=== PATIENT | male | born 1975 | race Two or more races ===

== ENCOUNTER 2024-05-27 19:08 | Emergency (ER) | payer MEDICAID, SELFPAY ==
[2024-05-27 19:10] VITALS: BMI 32.0
[2024-05-27 19:37] VITALS: BP 136/82; PULSE 78; RESP 18; TEMP 36.6; O2SAT 98
--- NOTE | 2024-05-27 19:54 | XR_ITS ---
Examination: CT brain head without contrast. 2-D sagittal coronal reconstructions Date and time of exam:May 27, 20242006 hrs. Comparison November 07, 2022 Indications: Onset dizziness beginning 4 days ago CTDI: vol (mGy):F50.1 DLP: (mGycm):990 Technique: Multiple CT axial sections of the brain have been obtained, 5 mm slice thickness. Contrast has not been administered. 2-D sagittal, coronal reconstructions have been obtained Low dose protocols were performed. One or more of the following dose reduction techniques were used; automated exposure control, adjustment of the mA and/or KV according to patient size, use of iterative reconstruction technique. Findings: No significant ventricular enlargement. Intra-axial or extra-axial hemorrhage density is not seen. No mass effect or midline shift Basal cisterns are not remarkable. Fourth ventricle is midline. Cranial vault intact. Impression: Negative for acute hemorrhage, mass effect or midline shift Advise clinical correlation and follow-up accordingly
--- NOTE | 2024-05-27 19:54 | XR_ITS ---
Examination: PA lateral chest 2 views Technique: Upright PA lateral chest 2 views Exam date and time: May 27, 20242012 hrs. Comparison April 09, 2023 Indications: Chest pain beginning last week. Findings: Normal heart size Lungs are clear. The osseous structures are intact Impression: No active disease
--- NOTE | 2024-05-27 19:54 | EKG_ITS ---
[facility] Test Date: 2024-05-27 Pat Name: BANDAR PINON Department: Room: - Gender: Male [employer]: : 1975 Requested By: Coy Manriquez ([facility]) Order Number: [id number] Reading MD: Coy Manriquez ([facility]) Measurements Intervals [place] Rate: 80 P: 54 KS: 216 QRS: 63 QRSD: 104 T: 47 QT: 365 QTc: 422 Interpretive Statements SINUS RHYTHM WITH FIRST DEGREE AV BLOCK Compared to ECG 11/07/2022 17:35:38 No significant changes /store/S0/[id number].pdf
--- NOTE | 2024-05-27 19:54 | PD.EDRME ---
Rapid Medical Screening Exam RME Arrival date/time: 05/27/24 19:08 49-year-old male presents emergency department complaining of headache with right-sided weakness since suffering a syncopal episode this past Monday. Chief Complaint: Headache Time Seen by Provider: 05/27/24 19:27 Vital signs: Vital Signs Temperature 98 F 05/27/24 19:37 Pulse Rate 78 05/27/24 19:37 Respiratory Rate 18 05/27/24 19:37 Blood Pressure 136/82 H 05/27/24 19:37 Pulse Oximetry (%) 98 05/27/24 19:37 Oxygen Delivery Method Room Air 05/27/24 19:37 Vital signs reviewed by provider: Yes
[2024-05-27 20:32] LABS: Basophils # (Auto) 0.1 Thou/mm3 (0.0-0.2); Basophils % (Auto) 1 % (0-2.5); Eosinophils # (Auto) 0.5 Thou/mm3 (0.0-0.5); Eosinophils % (Auto) 5 % (0-10); Hematocrit 45.1 % (41.0-53.0); Hemoglobin 15.1 g/dL (13.5-16.0); Immature Granulocytes % (Auto) 0 % (0-0); Immature Granulocytes Auto 0.03 Thou/mm3 (0.00-0.00); Lymphocytes # (Auto) 2.3 Thou/mm3 (1.0-4.8); Lymphocytes % (Auto) 24 % (10-50); Mean Corpuscular HGB Conc 33.5 g/dl (31.0-37.0); Mean Corpuscular Hemoglobin 30.3 pg (25.0-35.0); Mean Corpuscular Volume 91 fL (80-100); Monocytes # (Auto) 0.7 Thou/mm3 (0.0-0.8); Monocytes % (Auto) 7 % (0-12); Neutrophils # (Auto) 6.1 Thou/mm3 (1.8-7.7); Neutrophils % (Auto) 63 % (37-80); Nucleated Red Blood Cell % 0 /100 WBC (0); Platelet Count 299 Thou/mm3 (140-440); RDW Standard Deviation 43.8 fL (35.1-43.9); Red Blood Count 4.98 Miln/mm3 (4.50-5.90); White Blood Count 9.7 Thou/mm3 (3.8-10.6)
[2024-05-27 20:42] LABS: Partial Thromboplastin Time 27.3 Seconds (22.0-36.0); Prothrombin Time 10.9 Seconds (9.0-12.2)
[2024-05-27 20:46] LABS: B-Type Natriuretic Peptide < 20 pg/mL (0-100)
[2024-05-27 20:48] LABS: Alanine Aminotransferase 64 U/L (10-49); Albumin, Serum 5.5 gm/dL (3.5-5.0); Albumin/Globulin Ratio 1.9 (1.2-2.2); Alkaline Phosphatase 61 U/L (46-116); Anion Gap 7 (7-16); Aspartate Amino Transferase 45 U/L (0-34); BUN/Creatinine Ratio 8 Ratio (12-20); Bilirubin,Total 0.3 mg/dL (0.3-1.2); Blood Urea Nitrogen 6 mg/dL (9-23); Calcium 9.8 mg/dL (8.3-10.6); Calcium (Corrected) 9.8 mg/dL (8.5-10.1); Carbon Dioxide 28.9 mMol/L (20.0-31.0); Chloride 103 mMol/L (98-107); Creatinine (Component) 0.8 mg/dL (0.6-1.3); Globulin 2.9 gm/dL (2.3-3.5); Glucose 99 mg/dL (74-106); Magnesium 2.5 mg/dL (1.6-2.6); Osmolality,Calculated 275 (275-295); Potassium 4.1 mMol/L (3.4-5.1); Sodium 139 mMol/L (136-145); Total Protein 8.4 gm/dL (5.7-8.2); Troponin I < 0.002 ng/mL (0.0-0.045); eGFR > 60 See Note
[2024-05-27 21:10] VITALS: BP 125/83; PULSE 75; RESP 17; TEMP 36.7; O2SAT 98
--- NOTE | 2024-05-27 21:24 | EDNOTE_ITS ---
ED General RME/HPI General Chief complaint: Headache Stated complaint: HEADACHE X MONDAY, SYNCOPE Time Seen by Provider: 05/27/24 19:27 Arrival date/time: 05/27/24 19:08 CC: Right-sided headache, right-sided pain, with tingling and/numbness ongoing for the past 3-1/2 days. The patient mitts to drinking alcohol on a regular basis denies fall repetitive motion heavy construction or blunt trauma. No other complaints at this time. RME / HPI RME / HPI narrative: 05/27/24 19:08 49-year-old male presents emergency department complaining of headache with right-sided weakness since suffering a syncopal episode this past Monday. Related Data Previous Rx's ?Medication ?Instructions ?Recorded ibuprofen 600 mg tablet 600 mg PO Q6H #60 tabs 10/30/17 hydrocodone 5 mg-acetaminophen 325 1 tab PO Q6H PRN pain #20 tabs 06/26/20 mg tablet ([place]) moxifloxacin 0.5 % eye drops 1 drp ophthalmic (eye) TID #3 mL 06/26/20 (Vigamox) ibuprofen 800 mg tablet 800 mg PO TID PRN pain #30 tabs 09/08/21 Allergies Allergy/AdvReac Type Severity Reaction Status Date / Time No Known Allergies Allergy Verified 05/27/24 19:13 Review of Systems Review of Systems Narrative Review of Systems: GEN: No fever, no chills, no weight loss EYES: No discharge, no visual changes, no pain HEENT: No ear pain, no congestion, no sore throat PULM: No shortness of breath, no cough, no congestion CV: + chest pain, no dyspnea on exertion, no palpitations GI: No nausea, no vomiting, no diarrhea, no pain, no constipation : No frequency, no urgency, no dysuria MUSC/SKEL: No joint pain, no back pain SKIN: No rash PSYCH: No hallucinations, no depression HEME/LYMPH: No easy bleeding or bruising tendencies NEURO: No weakness, + headache Past Medical History Past Medical History CARDIAC: Negative Congestive Heart Failure RESPIRATORY: Negative Chronic Obstructive Pulmonary Disease (COPD) GENITOURINARY: Negative Renal Disease ENDOCRINE: Negative Diabetes Mellitus Type 1 or Diabetes Mellitus Type 2 Social History SMOKING STATUS: Current some day smoker ED Exam Narrative Physical exam: [General: Not in any acute distress Head normocephalic HEENT: Within acceptable limits Neck is supple nontender Chest equal chest rise nontender to palpation Respiratory: Clear to auscultation no wheezes crackles or rubs CV: Rate rhythm is regular no murmurs rubs or clicks Abdomen is flat, soft nontender no masses positive bowel sounds all 4 quadrants Back: No CVA tenderness no spinous process tenderness from cervical spine thoracic and lumbar spine Skin: Intact no petechiae rash induration ulceration or crepitus Extremities: Moving all extremity against resistance cap refill less than 2 seconds neurosensory intact Neuro: Awake alert oriented x3 Glascow coma 15 no focal deficits] cranial nerves II through XII are grossly intact. No hand tremors noted Course Quality Measures none Orders Category Date Time Status EKG (ED ONLY) *Do not use* NOW Care 05/27/24 19:[address] head/brain wo con Stat Exams 05/27/24 19:54 Completed EKG (ED Only) Stat Exams 05/27/24 19:54 Draft XR chest 2V Stat Exams 05/27/24 19:54 Completed Alcohol, Blood Medical Stat Lab 05/27/24 20:18 Completed B-Type Natriuretic Peptide Stat Lab 05/27/24 20:18 Completed CBC Stat Lab 05/27/24 20:18 Completed Comprehensive Metabolic Panel Stat Lab 05/27/24 20:18 Completed Drug Screen,Urine Stat Lab 05/27/24 21:15 Completed Magnesium Stat Lab 05/27/24 20:18 Completed Partial Thromboplastin Time Stat Lab 05/27/24 20:18 Completed Prothrombin Time with INR Stat Lab 05/27/24 20:18 Completed Troponin I Stat Lab 05/27/24 20:18 Completed Urinalysis Stat Lab 05/27/24 21:15 Completed Ketorolac Inj [Toradol Inj] Med 05/27/24 21:23 Discontinued 30 mg IM X1 ONE Vital Signs Vital signs: Vital Signs Temperature 98 F 05/27/24 19:37 Pulse Rate 78 05/27/24 19:37 Respiratory Rate 18 05/27/24 19:37 Blood Pressure 136/82 H 05/27/24 19:37 Pulse Oximetry (%) 98 05/27/24 19:37 Oxygen Delivery Method Room Air 05/27/24 19:37 [facility] Patient data External records reviewed:: [facility] previous records Clinical information provided by:: patient Social determinants that could affect healthcare access:: none Patient has the following chronic illnesses:: Alcohol consumption How is presenting disease/condition affected by chronic disease/condition?: e xacerbated by Evaluation data The following diagnostics were reviewed and interpreted by me:: lab results and radiology exam(s) Lab and/or radiology exams considered but not ordered:: CBC shows no acute leukocytosis anemia thrombocytopenia CMP shows no acute electrolyte imbalances, mildly elevated glucose no renal impairment transaminitis or T. bili elevation Alcohol level is 144 Troponin is negative BNP is negative CT of the head is interpreted by me read by radiology as negative Chest x-ray is interpreted by me read by urology is negative for any acute finding. Interpretation Summary: Headache alcohol intoxication Medications Medications considered but not ordered:: None Medication administrations:: Medication Administration History Discontinued Medications Ketorolac Tromethamine (Ketorolac Inj 60 Mg/2 Ml Vial) 30 mg IM X1 ONE Stop: 05/27/24 21:24 Last Admin: 05/27/24 21:35 Dose: 30 mg Documented By: CHANDLER None Consultations Consultation(s) initiated? (list below): No Diagnosis Differential Diagnosis ED Complaint MDM: CVA alcohol intoxication MD Most likely diagnosis given after review of the tests above:: Headache alcohol intoxication Admission Indicated Admission indicated?: not indicated Explain why admission is indicated or not indicated:: Stable for outpatient follow-up Admission Request Was there a request for admission?: No Disposition Plan Disposition Plan: Discharge Discharge Attestation Discharge Attestation: The patient and all family members were given an opportunity to ask questions and understood the discharge instructions. Discharge instructions specifically effects, indications for sooner follow up or return to the emergency department, and the expected course of current diagnosis. Patient condition: Stable Medical Decision Making Differential Diagnosis Differential Diagnosis: CVA alcohol intoxication MD Lab Data 05/27/24 20:18 05/27/24 20:18 Labs: Lab Results 05/27/24 05/27/24 Range/Units 20:18 21:15 WBC 9.7 (3.8-10.6) Thou/mm3 RBC 4.98 (4.50-5.90) Miln/mm3 Hgb 15.1 (13.5-16.0) g/dL Hct 45.1 (41.0-53.0) % MCV 91 (80-100) fL MCH 30.3 (25.0-35.0) pg MCHC 33.5 (31.0-37.0) g/dl RDW Std Deviation 43.8 (35.1-43.9) fL Plt Count 299 (140-440) Thou/mm3 Neut % (Auto) 63 (37-80) % Lymph % (Auto) 24 (10-50) % [place] % (Auto) 7 (0-12) % Eos % (Auto) 5 (0-10) % Baso % (Auto) 1 (0-2.5) % Neut # (Auto) 6.1 (1.8-7.7) Thou/mm3 Lymph # (Auto) 2.3 (1.0-4.8) Thou/mm3 [place] # (Auto) 0.7 (0.0-0.8) Thou/mm3 Eos # (Auto) 0.5 (0.0-0.5) Thou/mm3 Baso # (Auto) 0.1 (0.0-0.2) Thou/mm3 Immature Gran # (Auto) 0.03 H (0.00-0.00) Thou/mm3 Absolute Nucleated RBC 0.00 (0.00-0.00) Thou/mm3 Immature Gran % 0 (0-0) % Nucleated RBC % 0 (0) /100 WBC PT 10.9 (9.0-12.2) Seconds INR 1.0 (0.9-1.3) APTT 27.3 (22.0-36.0) Seconds Sodium 139 (136-145) mMol/L Potassium 4.1 (3.4-5.1) mMol/L Chloride 103 (98-107) mMol/L Carbon Dioxide 28.9 (20.0-31.0) mMol/L Anion Gap 7 (7-16) BUN 6 L (9-23) mg/dL Creatinine 0.8 (0.6-1.3) mg/dL Estim Creat Clear Calc 103.0 (>60) mL/min eGFR > 60 (60 - ) See Note BUN/Creatinine Ratio 8 L (12-20) Ratio Glucose 99 (74-106) mg/dL Calculated Osmolality 275 (275-295) Calcium 9.8 (8.3-10.6) mg/dL Corrected Calcium 9.8 (8.5-10.1) mg/dL Magnesium 2.5 (1.6-2.6) mg/dL Total Bilirubin 0.3 (0.3-1.2) mg/dL AST 45 H (0-34) U/L ALT 64 H (10-49) U/L Alkaline Phosphatase 61 (46-116) U/L Troponin I < 0.002 (0.0-0.045) ng/mL B-Natriuretic Peptide < 20 (0-100) pg/mL Total Protein 8.4 H (5.7-8.2) gm/dL Albumin 5.5 H (3.5-5.0) gm/dL Globulin 2.9 (2.3-3.5) gm/dL Albumin/Globulin Ratio 1.9 (1.2-2.2) Ur Collection Type Clean Catch Urine Color Lt-Yellow (Lt Yel-Yel) Urine Clarity Clear (Clear/Hazy) Urine pH 5.5 (5.0-7.0) Ur Specific [place] 1.014 (1.001-1.035) Urine Protein Negative (Neg - Trace) Urine Glucose (UA) Negative (Negative) Urine Ketones Negative (Negative) Urine Blood Negative (Negative) Urine Nitrite Negative (Negative) Urine Bilirubin Negative (Negative) Urine Urobilinogen (Auto) Negative (0.0-1.0) mg/dL Ur Leukocyte Esterase Negative (Negative) Urine RBC 1 (0-3) /hpf Urine WBC < 1 (0-5) /hpf Ur Squamous Epith Cells 0 (0-5) /hpf Urine Bacteria None (None) Urine Opiates Screen Negative (Negative) Urine Fentanyl Screen Negative (Negative) Ur Barbiturates Screen Negative (Negative) U Amphetamin/Meth Scrn Positive A (Negative) U Benzodiazepines Scrn Negative (Negative) U Cocaine Metab Screen Negative (Negative) U Marijuana (THC) Screen Negative (Negative) Ethyl Alcohol 154.0 H (0-10.0) mg/dL Discharge Plan Plan Patient Disposition: HOME (Self Care) Patient condition on transfer: Stable Prescriptions/Referrals Prescriptions/Med Rec: No Action ibuprofen 600 mg tablet 600 mg PO Q6H Qty: 60 0RF hydrocodone-acetaminophen [[place]] 5-325 mg tablet 1 tab PO Q6H MDD 4 PRN (Reason: pain) Qty: 20 0RF moxifloxacin [Vigamox] 0.5 % drops 1 drp ophthalmic (eye) TID Qty: 3 0RF Rx Instructions: 1 drop to right eye every 2 hours ibuprofen 800 mg tablet 800 mg PO TID PRN (Reason: pain) Qty: 30 0RF Referrals: Ramesh Person MD [Primary Care Provider] - In 1 week Problem List Clinical Impression: Headache, Alcohol intoxication Patient/Caregiver Discharge Instructions Education Materials: Self-Care for Headaches, ED Alcohol Intoxication Additional Instructions: Take Tylenol for relief of his worsening of symptoms follow-up with your primary care provider. Print Language: [place] Stand Alone Forms: Elsa Award Info., Patient Portal Info Letter
[2024-05-27] MEDS: KETOROLAC INJ 60 MG/2 ML VIAL 30 MG IM (21:35)
[2024-05-27 21:40] LABS: Collection Type, Urine Clean Catch; Squamous Epithelial Cell,Urine 0 /hpf (0-5)
[2024-05-27 21:51] LABS: Bilirubin,Urine Negative (Negative); Blood,Urine Negative (Negative); Clarity,Urine Clear (Clear/Hazy); Color,Urine Lt-Yellow (Lt Yel-Yel); Glucose, Urine Negative (Negative); Ketones,Urine Negative (Negative); Nitrite,Urine Negative (Negative); PH,Urine 5.5 (5.0-7.0); Protein,Urine Negative (Neg - Trace); Specific Gravity,Urine 1.014 (1.001-1.035); Urobilinogen,Urine Negative mg/dL (0.0-1.0)
[2024-05-27 21:52] LABS: Leukocyte Esterase,Urine Negative (Negative); RBC,Urine 1 /hpf (0-3); WBC,Urine < 1 /hpf (0-5)
[2024-05-27 22:31] LABS: Amphetamine/Methamp Scrn,U Positive (Negative); Barbiturate Screen,Urine Negative (Negative); Benzodiazepines Screen,Urine Negative (Negative); Benzoylecgonine Screen, Ur Negative (Negative); Fentanyl Screen,Urine Negative (Negative); Opiate Screen,Urine Negative (Negative); THC Screen,Urine Negative (Negative)
== END 2024-05-27 21:55 | disposition home or self-care (01) ==
PROVIDERS: Emergency Provider Emergency Medicine; PCP Family Medicine
DX: F10.129 Alcohol abuse with intoxication, unspecified (principal); R51.9 Headache, unspecified; I44.0 Atrioventricular block, first degree; R07.9 Chest pain, unspecified; R42 Dizziness and giddiness; I25.2 Old myocardial infarction; Y90.6 Blood alcohol level of 120-199 mg/100 ml; F17.200 Nicotine dependence, unspecified, uncomplicated
CPT/HCPCS: 36415; 70450; 71046; 80053; 80307; 80320; 81001; 83735; 83880; 84484; 85025; 85610; 85730; 93005; 96372; 99284; J1885; G0480